=== PATIENT | male | born 1940 | race Caucasian/White ===

== ENCOUNTER 2016-10-07 07:47 | Outpatient (CLI) | payer MEDICARE, OTHER ==
[2016-10-07 10:13] LABS: INR-International Normal Ratio 2.3; Prothrombin Time 24.8 SEC (12.0-14.7)
== END 2016-10-07 07:48 | disposition home or self-care (01) ==
LOC: MADLAB 07:47
PROVIDERS: ATTEND Nurse Practitioner
DX: R97.20 Elevated prostate specific antigen [PSA] (principal); Z86.718 Personal history of other venous thrombosis and embolism
CPT/HCPCS: 36415; 85610; G0103

== ENCOUNTER 2016-10-21 07:25 | Outpatient (CLI) | payer MEDICARE, OTHER ==
[2016-10-21 07:56] LABS: Prothrombin Time 22.9 SEC (12.0-14.7)
== END 2016-10-21 07:26 | disposition home or self-care (01) ==
LOC: MADLAB 07:25
PROVIDERS: ATTEND Nurse Practitioner
DX: R97.20 Elevated prostate specific antigen [PSA] (principal)
CPT/HCPCS: 36415; 85610; G0103

== ENCOUNTER 2016-11-11 07:40 | Outpatient (CLI) | payer MEDICARE, OTHER ==
[2016-11-11 08:12] LABS: Prothrombin Time 22.8 SEC (12.0-14.7)
== END 2016-11-11 07:41 | disposition home or self-care (01) ==
LOC: MADLABBHPM 07:40
PROVIDERS: ATTEND Nurse Practitioner
DX: R97.20 Elevated prostate specific antigen [PSA] (principal); Z86.718 Personal history of other venous thrombosis and embolism
CPT/HCPCS: 36415; 85610; G0103

== ENCOUNTER 2016-12-16 10:04 | Outpatient (CLI) | payer MEDICARE, OTHER ==
[2016-12-16 10:28] LABS: INR-International Normal Ratio 2.6; Prothrombin Time 27.6 SEC (12.0-14.7)
== END 2016-12-16 10:05 | disposition home or self-care (01) ==
LOC: MADLAB 10:04
PROVIDERS: ATTEND Urology
DX: R97.20 Elevated prostate specific antigen [PSA] (principal)
CPT/HCPCS: 36415; 85610; G0103

== ENCOUNTER 2017-02-03 09:12 | Outpatient (CLI) | payer MEDICARE, OTHER ==
[2017-02-03 09:49] LABS: INR-International Normal Ratio 2.1; Prothrombin Time 23.2 SEC (12.0-14.7)
== END 2017-02-03 09:13 | disposition home or self-care (01) ==
LOC: MADLAB 09:12
PROVIDERS: ATTEND Urology
DX: R97.20 Elevated prostate specific antigen [PSA] (principal); Z86.718 Personal history of other venous thrombosis and embolism
CPT/HCPCS: 36415; 85610; G0103

== ENCOUNTER 2018-09-05 08:40 | Outpatient (CLI) | payer MEDICARE, OTHER ==
[2018-09-05 09:16] LABS: INR-International Normal Ratio 1.9; Prothrombin Time 21.6 SEC (12.0-14.7)
== END 2018-09-05 08:41 | disposition home or self-care (01) ==
LOC: MADLAB 08:40
PROVIDERS: ATTEND Nurse Practitioner
DX: Z51.81 Encounter for therapeutic drug level monitoring (principal); Z86.718 Personal history of other venous thrombosis and embolism; Z79.01 Long term (current) use of anticoagulants
CPT/HCPCS: 36415; 85610

== ENCOUNTER 2018-10-26 12:10 | Outpatient (CLI) | payer MEDICARE, OTHER ==
[2018-10-26 12:45] LABS: INR-International Normal Ratio 2.7
== END 2018-10-26 12:11 | disposition home or self-care (01) ==
LOC: MADLAB 12:10
PROVIDERS: ATTEND Nurse Practitioner
DX: Z86.718 Personal history of other venous thrombosis and embolism (principal)
CPT/HCPCS: 85610

== ENCOUNTER 2019-01-10 11:26 | Outpatient (CLI) | payer MEDICARE, OTHER ==
[2019-01-10 11:47] LABS: INR-International Normal Ratio 2.1; Prothrombin Time 23.2 SEC (12.0-14.7)
== END 2019-01-10 11:27 | disposition home or self-care (01) ==
LOC: MADLAB 11:26
PROVIDERS: ATTEND Nurse Practitioner Family
DX: Z51.81 Encounter for therapeutic drug level monitoring (principal); I82.409 Acute embolism and thrombosis of unspecified deep veins of unspecified lower extremity; Z79.01 Long term (current) use of anticoagulants
CPT/HCPCS: 36415; 85610

== ENCOUNTER 2019-04-03 11:47 | Outpatient (CLI) | payer MEDICARE, OTHER ==
[2019-04-03 12:07] LABS: INR-International Normal Ratio 2.1; Prothrombin Time 23.5 SEC (12.0-14.7)
== END 2019-04-03 11:48 | disposition home or self-care (01) ==
LOC: MADLABBHPM 11:47
PROVIDERS: ATTEND Nurse Practitioner Family
DX: Z86.718 Personal history of other venous thrombosis and embolism (principal)
CPT/HCPCS: 36415; 85610

== ENCOUNTER 2019-04-18 09:42 | Outpatient (CLI) | payer MEDICARE, OTHER ==
[2019-04-18 10:01] LABS: INR-International Normal Ratio 1.9; Prothrombin Time 21.5 SEC (12.0-14.7)
== END 2019-04-18 09:43 | disposition home or self-care (01) ==
LOC: MADLAB 09:42
PROVIDERS: ATTEND Nurse Practitioner Family
DX: Z86.718 Personal history of other venous thrombosis and embolism (principal)
CPT/HCPCS: 36415; 85610

== ENCOUNTER 2019-05-08 09:17 | Outpatient (CLI) | payer MEDICARE, OTHER ==
[2019-05-08 09:36] LABS: INR-International Normal Ratio 1.5
== END 2019-05-08 09:18 | disposition home or self-care (01) ==
LOC: MADLAB 09:17
PROVIDERS: ATTEND Nurse Practitioner Family
DX: I82.409 Acute embolism and thrombosis of unspecified deep veins of unspecified lower extremity (principal)
CPT/HCPCS: 36415; 85610

== ENCOUNTER 2019-05-22 07:05 | Outpatient (CLI) | payer MEDICARE, OTHER ==
[2019-05-22 07:38] LABS: INR-International Normal Ratio 2.9; Prothrombin Time 29.8 SEC (12.0-14.7)
== END 2019-05-22 07:06 | disposition home or self-care (01) ==
LOC: MADLAB 07:05
PROVIDERS: ATTEND Nurse Practitioner Family
DX: I82.409 Acute embolism and thrombosis of unspecified deep veins of unspecified lower extremity (principal)
CPT/HCPCS: 36415; 85610

== ENCOUNTER 2019-09-21 08:32 | Outpatient (CLI) | payer MEDICARE, OTHER ==
[2019-09-21 09:07] LABS: INR-International Normal Ratio 2.1; Prothrombin Time 23.7 SEC (12.0-14.7)
== END 2019-09-21 08:33 | disposition home or self-care (01) ==
LOC: MADLAB 08:32
PROVIDERS: ATTEND Internal Medicine Hematology & Oncology
DX: I82.409 Acute embolism and thrombosis of unspecified deep veins of unspecified lower extremity (principal)
CPT/HCPCS: 36415; 85610

== ENCOUNTER 2019-11-06 10:41 | Outpatient (CLI) | payer MEDICARE, OTHER ==
[2019-11-06 11:21] LABS: INR-International Normal Ratio 2.2; Prothrombin Time 24.3 SEC (12.0-14.7)
== END 2019-11-06 10:42 | disposition home or self-care (01) ==
LOC: MADLAB 10:41
PROVIDERS: ATTEND Internal Medicine Hematology & Oncology
DX: I82.409 Acute embolism and thrombosis of unspecified deep veins of unspecified lower extremity (principal)
CPT/HCPCS: 36415; 85610

== ENCOUNTER 2019-12-07 07:46 | Outpatient (CLI) | payer MEDICARE, OTHER ==
[2019-12-07 08:53] LABS: INR-International Normal Ratio 2.8; Prothrombin Time 29.6 SEC (12.0-14.7)
== END 2019-12-07 07:47 | disposition home or self-care (01) ==
LOC: MADLAB 07:46
PROVIDERS: ATTEND Internal Medicine Hematology & Oncology
DX: I82.409 Acute embolism and thrombosis of unspecified deep veins of unspecified lower extremity (principal)
CPT/HCPCS: 36415; 85610

== ENCOUNTER 2020-01-26 09:47 | Outpatient (CLI) | payer MEDICARE, OTHER ==
[2020-01-26 10:05] LABS: INR-International Normal Ratio 2.7; Prothrombin Time 28.7 SEC (12.0-14.7)
== END 2020-01-26 09:48 | disposition home or self-care (01) ==
LOC: MADLAB 09:47
PROVIDERS: ATTEND Internal Medicine Hematology & Oncology
DX: Z86.718 Personal history of other venous thrombosis and embolism (principal)
CPT/HCPCS: 36415; 85610

== ENCOUNTER 2020-02-23 12:15 | Outpatient (CLI) | payer MEDICARE, OTHER ==
[2020-02-23 12:45] LABS: INR-International Normal Ratio 2.6; Prothrombin Time 27.7 sec (12.0-14.7)
== END 2020-02-23 12:16 | disposition home or self-care (01) ==
LOC: MADLAB 12:15
PROVIDERS: ATTEND Internal Medicine Hematology & Oncology
DX: I82.409 Acute embolism and thrombosis of unspecified deep veins of unspecified lower extremity (principal)
CPT/HCPCS: 36415; 85610

== ENCOUNTER 2020-03-28 10:18 | Outpatient (CLI) | payer MEDICARE, OTHER ==
[2020-03-28 10:43] LABS: INR-International Normal Ratio 2.7; Prothrombin Time 28.1 sec (12.0-14.7)
== END 2020-03-28 10:19 | disposition home or self-care (01) ==
LOC: MADLAB 10:18
PROVIDERS: ATTEND Internal Medicine Cardiovascular Disease
DX: I82.409 Acute embolism and thrombosis of unspecified deep veins of unspecified lower extremity (principal)
CPT/HCPCS: 36415; 85610

== ENCOUNTER 2020-04-19 10:39 | Outpatient (CLI) | payer MEDICARE, OTHER ==
[2020-04-19 11:01] LABS: INR-International Normal Ratio 3.6; Prothrombin Time 35.4 sec (12.0-14.7)
== END 2020-04-19 10:40 | disposition home or self-care (01) ==
LOC: MADLAB 10:39
PROVIDERS: ATTEND Internal Medicine Cardiovascular Disease
DX: I82.409 Acute embolism and thrombosis of unspecified deep veins of unspecified lower extremity (principal)
CPT/HCPCS: 36415; 85610

== ENCOUNTER 2020-08-20 14:10 | Outpatient (CLI) | payer MEDICARE, OTHER ==
[2020-08-20 14:35] LABS: INR-International Normal Ratio 3.4; Prothrombin Time 34.9 sec (12.0-14.7)
== END 2020-08-20 14:11 | disposition home or self-care (01) ==
LOC: MADLAB 14:10
PROVIDERS: ATTEND Internal Medicine Cardiovascular Disease
DX: Z86.718 Personal history of other venous thrombosis and embolism (principal)
CPT/HCPCS: 36415; 85610

== ENCOUNTER 2020-09-10 10:34 | Outpatient (CLI) | payer MEDICARE, OTHER ==
[2020-09-10 11:24] LABS: INR-International Normal Ratio 2.9; Prothrombin Time 31.1 sec (12.0-14.7)
== END 2020-09-10 10:35 | disposition home or self-care (01) ==
LOC: MADLAB 10:34
PROVIDERS: ATTEND Internal Medicine Cardiovascular Disease
DX: I82.409 Acute embolism and thrombosis of unspecified deep veins of unspecified lower extremity (principal)
CPT/HCPCS: 36415; 85610

== ENCOUNTER 2020-10-07 13:46 | Outpatient (CLI) | payer MEDICARE, OTHER ==
[2020-10-07 14:19] LABS: INR-International Normal Ratio 3.8
== END 2020-10-07 13:47 | disposition home or self-care (01) ==
LOC: MADLAB 13:46
PROVIDERS: ATTEND Internal Medicine Cardiovascular Disease
DX: I82.409 Acute embolism and thrombosis of unspecified deep veins of unspecified lower extremity (principal)
CPT/HCPCS: 36415; 85610

== ENCOUNTER 2020-12-17 11:11 | Outpatient (CLI) | payer MEDICARE, OTHER ==
[2020-12-17 11:37] LABS: INR-International Normal Ratio 1.2; Prothrombin Time 15.5 sec (12.0-14.7)
== END 2020-12-17 11:12 | disposition home or self-care (01) ==
LOC: MADLAB 11:11
PROVIDERS: ATTEND Internal Medicine Cardiovascular Disease
DX: I82.409 Acute embolism and thrombosis of unspecified deep veins of unspecified lower extremity (principal)
CPT/HCPCS: 36415; 85610

== ENCOUNTER 2021-01-20 13:11 | Outpatient (CLI) | payer MEDICARE, OTHER ==
[2021-01-20 13:40] LABS: INR-International Normal Ratio 3.3
== END 2021-01-20 13:12 | disposition home or self-care (01) ==
LOC: MADLAB 13:11
PROVIDERS: ATTEND Internal Medicine Cardiovascular Disease
DX: I82.409 Acute embolism and thrombosis of unspecified deep veins of unspecified lower extremity (principal)
CPT/HCPCS: 36415; 85610

== ENCOUNTER 2021-02-03 12:19 | Outpatient (CLI) | payer MEDICARE, OTHER ==
[2021-02-03 12:32] LABS: INR-International Normal Ratio 2.9; Prothrombin Time 30.7 sec (12.0-14.7)
== END 2021-02-03 12:20 | disposition home or self-care (01) ==
LOC: MADLAB 12:19
PROVIDERS: ATTEND Internal Medicine Cardiovascular Disease
DX: I82.409 Acute embolism and thrombosis of unspecified deep veins of unspecified lower extremity (principal)
CPT/HCPCS: 36415; 85610

== ENCOUNTER 2021-03-11 08:42 | Outpatient (CLI) | payer MEDICARE, OTHER ==
[2021-03-11 09:08] LABS: INR-International Normal Ratio 2.9; Prothrombin Time 31.2 sec (12.0-14.7)
== END 2021-03-11 08:43 | disposition home or self-care (01) ==
LOC: MADLAB 08:42
PROVIDERS: ATTEND Internal Medicine Cardiovascular Disease
DX: I82.409 Acute embolism and thrombosis of unspecified deep veins of unspecified lower extremity (principal)
CPT/HCPCS: 36415; 85610

== ENCOUNTER 2021-06-02 11:59 | Outpatient (CLI) | payer MEDICARE, OTHER ==
[2021-06-02 12:59] LABS: INR-International Normal Ratio 2.8; Prothrombin Time 29.2 sec (12.0-14.7)
== END 2021-06-02 12:00 | disposition home or self-care (01) ==
LOC: MADLAB 11:59
PROVIDERS: ATTEND Internal Medicine Cardiovascular Disease
DX: I82.409 Acute embolism and thrombosis of unspecified deep veins of unspecified lower extremity (principal)
CPT/HCPCS: 36415; 85610

== ENCOUNTER 2021-06-12 13:21 | Outpatient (CLI) | payer MEDICARE, OTHER ==
[2021-06-12 14:03] LABS: #Basophils 0.1 thou/uL (0.0-0.2); #Eosinphils 0.1 thou/uL (0.0-0.7); #Lymphocytes 1.7 thou/uL (1.20-3.40); #Monocytes 0.5 thou/uL (0.11-0.59); #Neutrophils 5.9 thou/uL (1.40-6.50); %Basophils 0.7 % (0.0-1.0); %Eosinophils 0.9 % (0.0-10.0); %Lymphocytes 20.2 % (21.0-51.0); %Monocytes 6.5 % (0.0-10.0); %Neutrophils 71.7 % (42.0-75.0); Mean Corpuscular HGB CONC 31.7 g/dL (32.0-36.0); Mean Corpuscular Hemoglobin 32.8 pg (27.0-31.0); Mean Corpuscular Volume 103.5 fL (78.0-98.0); Mean Platelet Volume 7.9 fL (7.4-10.4); Platelet Count 191 thou/uL (130-400); RBC Distribution Width 14.1 % (11.5-14.5); White Blood Cell (WBC) Count 8.2 thou/uL (4.8-10.8)
[2021-06-12 14:15] LABS: INR-International Normal Ratio 2.3; Prothrombin Time 25.2 sec (12.0-14.7)
[2021-06-12 14:23] LABS: Carbon Dioxide 27 mmol/L (23-31); Chloride 106 mmol/L (98-107); Potassium 4.3 mmol/L (3.5-5.1); Sodium 142 mmol/L (136-145)
[2021-06-12 14:24] LABS: ALT (SGPT) 12 U/L (8-55); AST (SGOT) 17 U/L (5-34); Albumin 3.8 g/dL (3.4-4.8); Alkaline Phosphatase 112 U/L (40-110); Anion Gap 13 mmol/L (10-20); BUN (Urea Nitrogen) 15 mg/dL (8.4-25.7); Bilirubin, Total 0.8 mg/dL (0.2-1.2); Calc. Creatinine Clearance 0 mL/min (70-130); Calcium 9.6 mg/dL (7.8-10.44); Cardiac Risk 4.4 (Less than 4.5); Cholesterol 204 mg/dl (< 200 Desired); Globulin 3.3 g/dL (2.4-3.5); Glucose 84 mg/dL (83-110); HDL Cholesterol 46 mg/dL (>60 Neg Risk); LDL Cholesterol, Calculated 133 mg/dL; Protein, Total 7.1 g/dL (5.8-8.1); Triglycerides 124 mg/dL (Less than 150)
== END 2021-06-12 13:22 | disposition home or self-care (01) ==
LOC: MADLAB 13:21
PROVIDERS: ATTEND Internal Medicine Cardiovascular Disease
DX: I82.409 Acute embolism and thrombosis of unspecified deep veins of unspecified lower extremity (principal)
CPT/HCPCS: 36415; 80053; 80061; 85025; 85610

== ENCOUNTER 2021-07-25 15:00 | Outpatient (CLI) | payer MEDICARE, OTHER ==
[2021-07-25 15:43] LABS: INR-International Normal Ratio 1.7; Prothrombin Time 19.9 sec (12.0-14.7)
== END 2021-07-25 15:01 | disposition home or self-care (01) ==
LOC: MADLAB 15:00
PROVIDERS: ATTEND Internal Medicine Cardiovascular Disease
DX: I82.409 Acute embolism and thrombosis of unspecified deep veins of unspecified lower extremity (principal); Z86.718 Personal history of other venous thrombosis and embolism
CPT/HCPCS: 36415; 85610

== ENCOUNTER 2021-09-03 12:56 | Outpatient (CLI) | payer MEDICARE, OTHER ==
[2021-09-03 13:20] LABS: INR-International Normal Ratio 2.1; Prothrombin Time 24.1 sec (12.0-14.7)
== END 2021-09-03 12:57 | disposition home or self-care (01) ==
LOC: MADLAB 12:56
PROVIDERS: ATTEND Internal Medicine Cardiovascular Disease
DX: I82.409 Acute embolism and thrombosis of unspecified deep veins of unspecified lower extremity (principal)
CPT/HCPCS: 36415; 85610

== ENCOUNTER 2021-10-29 13:52 | Outpatient (CLI) | payer MEDICARE, OTHER ==
[2021-10-29 14:37] LABS: INR-International Normal Ratio 2.6
== END 2021-10-29 13:53 | disposition home or self-care (01) ==
LOC: MADLAB 13:52
PROVIDERS: ATTEND Internal Medicine Cardiovascular Disease
DX: I82.409 Acute embolism and thrombosis of unspecified deep veins of unspecified lower extremity (principal)
CPT/HCPCS: 36415; 85610

== ENCOUNTER 2021-12-22 10:33 | Outpatient (CLI) | payer MEDICARE, OTHER ==
[2021-12-22 10:58] LABS: INR-International Normal Ratio 2.3; Prothrombin Time 25.5 sec (12.0-14.7)
== END 2021-12-22 10:34 | disposition home or self-care (01) ==
LOC: MADLAB 10:33
PROVIDERS: ATTEND Internal Medicine Cardiovascular Disease
DX: I82.409 Acute embolism and thrombosis of unspecified deep veins of unspecified lower extremity (principal)
CPT/HCPCS: 36415; 85610

== ENCOUNTER 2022-01-29 11:20 | Outpatient (CLI) | payer MEDICARE, OTHER ==
[2022-01-29 11:46] LABS: INR-International Normal Ratio 2.2; Prothrombin Time 24.5 sec (12.0-14.7)
== END 2022-01-29 11:21 | disposition home or self-care (01) ==
LOC: MADLAB 11:20
PROVIDERS: ATTEND Internal Medicine Cardiovascular Disease
DX: I82.409 Acute embolism and thrombosis of unspecified deep veins of unspecified lower extremity (principal)
CPT/HCPCS: 36415; 85610

== ENCOUNTER 2022-02-26 11:50 | Outpatient (CLI) | payer MEDICARE, OTHER ==
[2022-02-26 12:31] LABS: INR-International Normal Ratio 1.8; Prothrombin Time 20.7 sec (12.0-14.7)
== END 2022-02-26 11:51 | disposition home or self-care (01) ==
LOC: MADLAB 11:50
PROVIDERS: ATTEND Internal Medicine Cardiovascular Disease
DX: Z86.718 Personal history of other venous thrombosis and embolism (principal)
CPT/HCPCS: 36415; 85610

== ENCOUNTER 2022-03-24 14:23 | Outpatient (CLI) | payer MEDICARE, OTHER ==
[2022-03-24 14:48] LABS: INR-International Normal Ratio 1.5; Prothrombin Time 18.8 sec (12.0-14.7)
== END 2022-03-24 14:24 | disposition home or self-care (01) ==
LOC: MADLAB 14:23
PROVIDERS: ATTEND Internal Medicine Cardiovascular Disease
DX: Z86.718 Personal history of other venous thrombosis and embolism (principal)
CPT/HCPCS: 36415; 85610

== ENCOUNTER 2022-05-25 15:03 | Outpatient (CLI) | payer MEDICARE, OTHER ==
[2022-05-25 16:33] LABS: INR-International Normal Ratio 1.1; Prothrombin Time 14.2 sec (12.0-14.7)
== END 2022-05-25 15:04 | disposition home or self-care (01) ==
LOC: MADLAB 15:03
PROVIDERS: ATTEND Internal Medicine Cardiovascular Disease
DX: Z86.718 Personal history of other venous thrombosis and embolism (principal)
CPT/HCPCS: 36415; 85610

== ENCOUNTER 2022-06-22 14:08 | Outpatient (CLI) | payer MEDICARE, OTHER ==
[2022-06-22 14:28] LABS: INR-International Normal Ratio 3.5; Prothrombin Time 35.7 sec (12.0-14.7)
== END 2022-06-22 14:09 | disposition home or self-care (01) ==
LOC: MADLAB 14:08
PROVIDERS: ATTEND Internal Medicine Cardiovascular Disease
DX: Z86.718 Personal history of other venous thrombosis and embolism (principal)
CPT/HCPCS: 36415; 85610

== ENCOUNTER 2022-07-20 11:35 | Outpatient (CLI) | payer MEDICARE, OTHER ==
[2022-07-20 12:06] LABS: INR-International Normal Ratio 1.9; Prothrombin Time 22.3 sec (12.0-14.7)
== END 2022-07-20 11:36 | disposition home or self-care (01) ==
LOC: MADLAB 11:35
PROVIDERS: ATTEND Internal Medicine Cardiovascular Disease
DX: Z09 Encounter for follow-up examination after completed treatment for conditions other than malignant neoplasm (principal); Z86.718 Personal history of other venous thrombosis and embolism
CPT/HCPCS: 36415; 85610

== ENCOUNTER 2025-06-25 14:59 | Outpatient (CLI) | payer MEDICARE, OTHER ==
[2025-06-25 15:24] LABS: INR-International Normal Ratio 2.1; Prothrombin Time 23.8 sec (12.0-14.7)
[2025-06-25 15:31] LABS: Anion Gap 15 mmol/L (10-20); BUN (Urea Nitrogen) 18 mg/dL (8.4-25.7); Calc. Creatinine Clearance 0 mL/min (70-130); Calcium 9.2 mg/dL (7.8-10.44); Carbon Dioxide 25 mmol/L (23-31); Chloride 106 mmol/L (98-107); Glucose 95 mg/dL (83-110); Potassium 4.5 mmol/L (3.5-5.1); Sodium 141 mmol/L (136-145)
[2025-06-25 15:40] LABS: #Basophils 0.1 thou/uL (0.0-0.2); #Eosinophils 0.1 thou/uL (0.0-0.7); #Lymphocytes 1.9 thou/uL (1.20-3.40); #Monocytes 0.5 thou/uL (0.11-0.59); #Neutrophils 5.4 thou/uL (1.40-6.50); %Basophils 0.8 % (0.0-1.0); %Eosinophils 1.2 % (0.0-10.0); %Lymphocytes 23.6 % (21.0-51.0); %Monocytes 5.8 % (0.0-10.0); %Neutrophils 68.6 % (42.0-75.0); Hematocrit 55.7 % (42.0-52.0); Hemoglobin 17.6 g/dL (14.0-18.0); Mean Corpuscular Hemoglobin 32.7 pg (27.0-31.0); Mean Corpuscular Volume 103.4 fl (78.0-98.0); Platelet Count 208 10x3/uL (130-400); Red Blood Cell (RBC) Count 5.39 mill/uL (4.70-6.10); White Blood Cell (WBC) Count 7.9 10x3/uL (4.8-10.8)
== END 2025-06-25 15:00 | disposition home or self-care (01) ==
LOC: MADLAB 14:59
PROVIDERS: ATTEND Nurse Practitioner
DX: I50.22 Chronic systolic (congestive) heart failure (principal); I44.2 Atrioventricular block, complete; I25.5 Ischemic cardiomyopathy
CPT/HCPCS: 36415; 80048; 85025; 85610